=== PATIENT | female | born 1945 | race Caucasian/White ===

== ENCOUNTER 2019-04-23 19:55 | Emergency (ER) | payer OTHER, BC ==
[~2019-04-23] VITALS: Ht 162.6 cm; Wt 63.5 kg
[2019-04-23 20:56] LABS: ABSOLUTE NEUTROPHILS 4.9 thou/uL (1.4-8.2); BASOPHILS 0.5 % (0.0-2.0); EOSINOPHILS 1.2 % (0.0-3.0); HEMATOCRIT 40.5 % (37.0-47.0); HEMOGLOBIN 13.4 gm/dL (12.0-15.0); LYMPHOCYTES 28.6 % (24.0-44.0); MCH 28.7 pg (26.0-34.0); MCHC 33.1 g/dL (28.0-37.0); MCV 86.7 fL (80.0-100.0); PLATELET COUNT 288 thou/uL (150-400); POLYS 63.7 % (36.0-66.0); RBC 4.67 mil/uL (4.20-5.00); RDW 13.2 % (10.5-14.5); WBC 7.6 thou/uL (4.0-11.0)
[2019-04-23 21:03] LABS: ANION GAP 5 mmol/L (7-16); BUN 12 mg/dL (7-18); CALCIUM 8.9 mg/dL (8.5-10.1); CHLORIDE 106 mmol/L (98-107); CO2 31 mmol/L (21-32); CREATININE 0.8 mg/dL (0.6-1.0); GLUCOSE 128 mg/dL (74-106); POTASSIUM 4.3 mmol/L (3.5-5.1); SODIUM 142 mmol/L (136-145)
[2019-04-23 21:12] LABS: MAGNESIUM 1.8 mg/dL (1.8-2.4); TROPONIN-I <0.06 ng/mL (<0.06)
[2019-04-23] MEDS ORDERED: MECLIZINE HCL12.5 MG PO (21:45)
[2019-04-23 21:55] VITALS: BP 130/68
--- NOTE | 2019-04-24 09:27 | EKG ---
[facility] [place] [address] ELECTROCARDIOGRAM REPORT Name: JAMES WYNN Room #: DEP [facility]#: [id number] Admission: 04/23/19 Attend Phys: Discharge: 04/23/19 Date of : 45 Report #: [id number] THIS REPORT FOR: cc: MANNY - Tarsha family physician/PCP FAM - No family physician/PCP Robbie Webster MD [facility] THIS REPORT FOR: //name// [facility] ED Test Date: 2019-04-23 Test Time: 20:11:12 Pat Name: JAMES WYNN Department: Room: Gender: Chief Wharfinger: [facility] : 1945 Requested By: Ernestine Grider Order Number: [id number] MD: Robbie Webster Measurements Intervals [place] Rate: 80 P: 12 ID: 135 QRS: 23 QRSD: 95 T: 42 QT: 390 QTc: 450 Interpretive Statements Sinus rhythm No significant abnormality No previous ECG available for comparison Electronically Signed On 04-24-2019 9:26:13 CDT by Robbie Webster [email or web address] <ELECTRONICALLY SIGNED> By: Robbie Webster MD, [facility] 04/24/19925 10 10 Robbie Webster MD, FACC /EPI
== END 2019-04-23 22:11 | disposition home or self-care (01) ==
LOC: ER 19:55
PROVIDERS: Emergency Medicine Emergency Medical Services
DX: R42 Dizziness and giddiness (principal)